=== PATIENT | male | born 1975 | race Hispanic/Latino ===

== ENCOUNTER 2024-01-28 02:35 | Emergency (ER) | payer OTHER ==
[2024-01-28] MEDS ORDERED: Lidocaine 2% Viscous 100 ML BOTTLE ONE (02:56)
[2024-01-28] MEDS ORDERED: Ciprofloxacin 0.3% Ophth Soln 2.5 ml Bottle ONE (03:36)
== END 2024-01-28 03:50 ==
LOC: EEVIPCON 02:35 → NAV ERS 02:35
DX: T16.1XXA Foreign body in right ear, initial encounter (principal); S00.411A Abrasion of right ear, initial encounter; I10 Essential (primary) hypertension
CPT/HCPCS: 69200; 99283